=== PATIENT | male | born 1945 | race Caucasian/White ===

== ENCOUNTER 2019-05-17 15:38 | Outpatient (REF) | payer MEDICARE, BC, SELFPAY ==
[2019-05-17 21:03] LABS: ALT 18 U/L (16-63); Anion Gap 8.7 mmol/L (3-11); BUN 23 mg/dL (7-18); CO2 31.3 mmol/L (21.0-32.0); CREATININE 0.97 mg/dL (0.70-1.30); Calcium 9.8 mg/dL (8.5-10.1); Chloride 99 mmol/L (98-107); Glucose 177 mg/dL (70-100); LDL CHOLESTEROL 70 mg/dL (<100); Potassium 3.7 mmol/L (3.5-5.1); Sodium 139 mmol/L (136-145)
[2019-05-19 09:39] LABS: PSA, Screening 0.5 ng/ml (0-6.5)
== END 2019-05-17 15:58 ==
LOC: NCHCN 15:38
PROVIDERS: Visit Provider Internal Medicine
DX: I10 Essential (primary) hypertension (principal); E11.9 Type 2 diabetes mellitus without complications; Z12.5 Encounter for screening for malignant neoplasm of prostate
CPT/HCPCS: 80048; 83721; 84153; 84460

== ENCOUNTER 2020-11-25 11:39 | Outpatient (REF) | payer MEDICARE, BC, SELFPAY ==
[2020-11-25 15:52] LABS: HCT 44.3 % (40.0-50.0); MCH 30.8 pg (27.0-33.0); MCHC 33.9 % (32.0-36.0); MPV 10.7 fL (8.0-11.0); Platelet Count 217 10^3/uL (130-400); RBC 4.87 10^6/uL (4.36-5.78); RDW 13.2 % (11.8-14.1); RDW-SD 44.2 fL; WBC 6.85 10^3/uL (4.4-10.8)
[2020-11-25 16:28] LABS: ALT 37 U/L (16-63); AST 30 U/L (15-37); Albumin 3.8 g/dL (3.4-5.0); Alkaline Phosphatase 55 U/L (46-116); Anion Gap 7.7 mmol/L (3-11); BUN 23 mg/dL (7-18); Bilirubin, Total 0.7 mg/dL (0.2-1.0); CO2 31.3 mmol/L (21.0-32.0); CREATININE 1.1 mg/dL (0.70-1.30); Calcium 9.7 mg/dL (8.5-10.1); Chloride 99 mmol/L (98-107); Glucose 181 mg/dL (74-106); Potassium 3.9 mmol/L (3.5-5.1); Sodium 138 mmol/L (136-145); TSH 1.41 uIU/mL (0.36-3.74); Total Protein 7.3 g/dL (6.4-8.2)
[2020-11-25 16:40] LABS: LDL CHOLESTEROL 69 mg/dL (<100)
== END 2020-11-25 11:40 | disposition home or self-care (01) ==
LOC: NCHCN 11:39
PROVIDERS: PCP Internal Medicine; Visit Provider Internal Medicine
DX: I10 Essential (primary) hypertension (principal); E11.9 Type 2 diabetes mellitus without complications; I25.10 Atherosclerotic heart disease of native coronary artery without angina pectoris
CPT/HCPCS: 80053; 83721; 85027; 84443

== ENCOUNTER 2021-11-28 15:38 | Outpatient (REF) | payer MEDICARE, BC, SELFPAY ==
[2021-11-28 18:52] LABS: HCT 46.9 % (40.0-50.0); MCH 29.8 pg (27.0-33.0); MCV 93 fL (80-95); MPV 11.2 fL (8.0-11.0); Platelet Count 204 10^3/uL (130-400); RBC 5.03 10^6/uL (4.36-5.78); RDW 13.2 % (11.8-14.1); RDW-SD 45.1 fL; WBC 6.95 10^3/uL (4.4-10.8)
[2021-11-28 19:14] LABS: ALT 39 U/L (16-63); Anion Gap 9.1 mmol/L (3-11); CO2 30.9 mmol/L (21.0-32.0); CREATININE 1.1 mg/dL (0.70-1.30); Calcium 9.8 mg/dL (8.5-10.1); Calculated LDL 98 mg/dL (<100); Chloride 97 mmol/L (98-107); Cholesterol 172 mg/dL (<200); Glucose 221 mg/dL (74-106); HDL Cholesterol 47 mg/dL (40-60); Potassium 3.9 mmol/L (3.5-5.1); Sodium 137 mmol/L (136-145); Triglyceride 139 mg/dL (<150)
[2021-11-28 19:37] LABS: BUN 29 mg/dL (7-18)
== END 2021-11-28 15:39 | disposition home or self-care (01) ==
LOC: NCHCN 15:38
PROVIDERS: PCP Internal Medicine; Visit Provider Internal Medicine
DX: I10 Essential (primary) hypertension (principal); E11.9 Type 2 diabetes mellitus without complications; I25.10 Atherosclerotic heart disease of native coronary artery without angina pectoris
CPT/HCPCS: 80048; 80061; 85027; 84460

== ENCOUNTER 2022-05-04 12:10 | Outpatient (REF) | payer MEDICARE, BC, SELFPAY ==
[2022-05-05 18:22] LABS: PSA, Diagnostic 0.6 ng/mL (<=6.5)
== END 2022-05-04 12:11 | disposition home or self-care (01) ==
LOC: NCHCN 12:10
PROVIDERS: PCP Internal Medicine; Visit Provider Internal Medicine
DX: N40.1 Benign prostatic hyperplasia with lower urinary tract symptoms (principal)
CPT/HCPCS: 84153

== ENCOUNTER 2022-11-19 13:47 | Outpatient (REF) | payer MEDICARE, BC, SELFPAY ==
[2022-11-19 20:00] LABS: ALT 36 U/L (16-63); AST 25 U/L (15-37); Albumin 3.7 g/dL (3.4-5.0); Alkaline Phosphatase 54 U/L (46-116); Anion Gap 9.7 mmol/L (3-11); BUN 24 mg/dL (7-18); Bilirubin, Total 0.5 mg/dL (0.2-1.0); CO2 27.3 mmol/L (21.0-32.0); CREATININE 1.2 mg/dL (0.70-1.30); Calcium 9.6 mg/dL (8.5-10.1); Chloride 100 mmol/L (98-107); Creatine Kinase 106 U/L (39-308); Estimated GFR 62.29 (mL/min/1.73m2); Glucose 232 mg/dL (74-106); Potassium 3.9 mmol/L (3.5-5.1); Sodium 137 mmol/L (136-145); Total Protein 7.6 g/dL (6.4-8.2)
[2022-11-19 20:26] LABS: Calculated LDL 66 mg/dL (<100); Cholesterol 129 mg/dL (<200); HDL Cholesterol 43 mg/dL (40-60); Triglyceride 100 mg/dL (<150)
== END 2022-11-19 13:48 | disposition home or self-care (01) ==
LOC: NCHCN 13:47
PROVIDERS: PCP Internal Medicine; Visit Provider Internal Medicine
DX: I10 Essential (primary) hypertension (principal); E11.9 Type 2 diabetes mellitus without complications; R00.2 Palpitations; I25.10 Atherosclerotic heart disease of native coronary artery without angina pectoris; N40.1 Benign prostatic hyperplasia with lower urinary tract symptoms
CPT/HCPCS: 80053; 80061; 82550

== ENCOUNTER 2024-04-24 20:42 | Outpatient (REF) | payer MEDICARE, BC, SELFPAY ==
[2024-04-24 20:21] LABS: ALT 36 U/L (16-63); AST 27 U/L (15-37); Albumin 3.6 g/dL (3.4-5.0); Alkaline Phosphatase 61 U/L (46-116); Anion Gap 7.7 mmol/L (3-11); BUN 24 mg/dL (7-18); CO2 30.3 mmol/L (21.0-32.0); CREATININE 1.2 mg/dL (0.70-1.30); Calcium 9.7 mg/dL (8.5-10.1); Calculated LDL 73 mg/dL (<100); Chloride 100 mmol/L (98-107); Cholesterol 150 mg/dL (<200); Glucose 159 mg/dL (74-106); HDL Cholesterol 46 mg/dL (40-60); Potassium 3.7 mmol/L (3.5-5.1); Sodium 138 mmol/L (136-145); Total Protein 7.4 g/dL (6.4-8.2); Triglyceride 159 mg/dL (<150)
[2024-04-25 18:04] LABS: PSA, Screening 0.8 ng/mL (<=6.5)
== END 2024-04-24 20:43 | disposition home or self-care (01) ==
LOC: NCHCN 20:42
PROVIDERS: PCP Internal Medicine; Visit Provider Internal Medicine
DX: I10 Essential (primary) hypertension (principal)
CPT/HCPCS: 80053; 80061; 84153

== ENCOUNTER 2024-06-02 11:56 | Outpatient (REF) | payer MEDICARE, BC, SELFPAY ==
--- OUTSIDE RECORDS SUMMARY | 2024-06-02 12:01 | XMS_ITS | Encounter Summary ---
Author Organization [facility] Address [address] [place] [address] Care Team Providers Care Db2 Dba Name Role Phone Unavailable Primary Care Provider Unavailabl e Encounter Details Date Type Department Care Team (Late st Contact Info) Description 04/25/2024 Lab Requisition [facility] Pathology & Laboratory Medicine - [facility] [address] [place] [address] Outr Resulting Lab, Provider Social History Tobacco Use Types Packs/Day Years Used Date Smoking Tobacco: Never Assessed Sex and Gender Information Value Date Recorded Sex Assigned at Not on file Gender Identity Not on file Sexual Orientation Not on file documented as of this encounter Plan of Treatment Not on file documented as of this encounter Procedures Procedure Name Priority Date/Time Associated Diagnosis Comments PSA TOTAL, DIAGNOSTIC Routine 04/24/2024 11:40 EDT documented in this encounter Results * PSA TOTAL, DIAGNOSTIC (04/24/2024 11:40 EDT) PSA 0.8 <=6.5 ng/mL 04/25/2024 17:59 EDT [facility] Blood VENOUS BLOOD / Unknown 04/24/2024 11:40 EDT 04/25/2024 17:08 EDT Narrative [facility] - 04/25/2024 17:59 EDT NOTE: Serum PSA concentration should not be interpreted as absolute evidence for the presence or absence of malignant disease. Assayed on Siemens ADVIA Centaur XPT using chemiluminescent technology.??Values obtained by using different assay methods cannot be used interchangeably. Provider Outr Resulting Lab CHEMISTRY & BLOOD GAS ORDERABLES [facility] [address] [place] [address] documented in this encounter Visit Diagnoses Not on filedocumented in this encounter
--- OUTSIDE RECORDS SUMMARY | 2024-06-02 12:01 | XMS_ITS | Encounter Summary ---
Author Organization [facility] Address [facility] [address] Care Team Providers Care Nail Mill Worker Name Role Phone Maco Shaikh MD Primary Care Provider + [phone] Reason for Visit * Reason Comments Skin Check Encounter Details Date Type Department Care Team (Late st Contact Info) Description 05/23/2018 11:00 AM EDT Office Visit Dermatology at [address] [place] [address] Bulmaro Toth MD [address], [place] [address] Chondrodermatitis nodularis helicis of right ear; Seborrheic keratosis Social History Tobacco Use Types Packs/Day Years Used Date Smoking Tobacco: Former Smokeless Tobacco: Never Sex and Gender Information Value Date Recorded Sex Assigned at Not on file Gender Identity Not on file Sexual Orientation Not on file documented as of this encounter Progress Notes * Bulmaro Toth MD - 05/23/2018 11:00 AM EDT Problem: Skin checkup 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 Is concerned about a sore spot in the right upper lateral helical rim spot on his right cheek and would like to have a general skin checkup. He points out that for the last 18 years is gone in the winter to [place], they spent 2 hours every day at the pool. He does try to wear a hat and use sunscreen when he is out of doors. He denies any past history of skin cancer or melanoma. Physical examination reveals a pleasant 72-year-old gentleman who has a solar elastotic nodule of the right superior lateral helical rim. Underlying this there is an area of tenderness with palpationconsistent with chondrodermatitis nodularis helicis. He has a seborrheic keratosis on the right jawline. Otherwise careful examination of the thinning parietal scalp, of the face the neck the chest the back the hands the arms and forearms is benign he does not desire examination of his legs. 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 Discussed different strategies for treating this 2. Today LN 2 x 2 applied 3. If site is still symptomatic when he returns in October from [place], could consider steroid injection and potentially also excision of the overlying elastotic nodule. 4. Patient reassured about benign nature of this Benign skin examination 1. Patient sure about benign skin examination 2. No lesion of concern seen 3. Recommend return to clinic in 1 year for repeat skin checkup. CC: Maco Shaikh MD documented in this encounter Plan of Treatment Not on file documented as of this encounter Visit Diagnoses Diagnosis Chondrodermatitis nodularis helicis of right ear Seborrheic keratosis Other seborrheic keratosis documented in this encounter Care Teams Nail Mill Worker Relationship Specialty Start Date End Date Maco Shaikh MD [address] [place] [id number] PCP - General General Internal Medicine 05/23/18 documented as of this encounter
--- OUTSIDE RECORDS SUMMARY | 2024-06-02 12:01 | XMS_ITS | Clinical Summary ---
Author Organization [facility] Address [address] [place] [address] Care Team Providers Care Drill Operator Name Role Phone Unavailable Primary Care Provider Unavailabl e Encounters Date Type Department Care Team Description 04/25/2024 Lab Requisition [facility] Pathology & Laboratory Medicine - [facility] [address] [place] [address] Outr Resulting Lab, Provider from Last 3 Months Social History Tobacco Use Types Packs/Day Years Used Date Smoking Tobacco: Never Assessed Sex and Gender Information Value Date Recorded Sex Assigned at Not on file Gender Identity Not on file Sexual Orientation Not on file Plan of Treatment Health Maintenance Due Date Last Done Comments Hepatitis C Screen 1945 RSV Immunization ( o r 60+ Years) (1 - 1-dose 60+ series) 2005 Fall Risk Screening 2010 COVID-19 Vaccine ( season) 2024 Procedures Procedure Name Priority Date/Time Associated Diagnosis Comments PSA TOTAL, DIAGNOSTIC Routine 04/24/2024 11:40 EDT from Last 3 Months Results * PSA TOTAL, DIAGNOSTIC (04/24/2024 11:40 EDT) PSA 0.8 <=6.5 ng/mL 04/25/2024 17:59 EDT [facility] Blood VENOUS BLOOD / Unknown 04/24/2024 11:40 EDT 04/25/2024 17:08 EDT Narrative [facility] - 04/25/2024 17:59 EDT NOTE: Serum PSA concentration should not be interpreted as absolute evidence for the presence or absence of malignant disease. Assayed on Siemens ADVIA Intrallectaur XPT using chemiluminescent technology.??Values obtained by using different assay methods cannot be used interchangeably. Provider Outr Resulting Lab CHEMISTRY & BLOOD GAS ORDERABLES [facility] [address] [place] [address] from Last 3 Months
--- OUTSIDE RECORDS SUMMARY | 2024-06-02 12:01 | XMS_ITS | Referral Summary ---
Author Organization [facility] Address [address] [place] [address] Care Team Providers Care Lodge Officer Name Role Phone Unavailable Primary Care Provider Unavailabl e Encounters Date Type Department Care Team Description 04/25/2024 Lab Requisition [facility] Pathology & Laboratory Medicine - [facility] [address] [place] [address] Outr Resulting Lab, Provider from Last 3 Months Social History Tobacco Use Types Packs/Day Years Used Date Smoking Tobacco: Never Assessed Sex and Gender Information Value Date Recorded Sex Assigned at Not on file Gender Identity Not on file Sexual Orientation Not on file Plan of Treatment Not on file Procedures Procedure Name Priority Date/Time Associated Diagnosis Comments PSA TOTAL, DIAGNOSTIC Routine 04/24/2024 11:40 EDT from Last 3 Months Results * PSA TOTAL, DIAGNOSTIC (04/24/2024 11:40 EDT) PSA 0.8 <=6.5 ng/mL 04/25/2024 17:59 EDT [facility] Blood VENOUS BLOOD / Unknown 04/24/2024 11:40 EDT 04/25/2024 17:08 EDT Narrative [facility] - 04/25/2024 17:59 EDT NOTE: Serum PSA concentration should not be interpreted as absolute evidence for the presence or absence of malignant disease. Assayed on Siemens ADVIA Centaur XPT using chemiluminescent technology.??Values obtained by using different assay methods cannot be used interchangeably. Provider Outr Resulting Lab CHEMISTRY & BLOOD GAS ORDERABLES [facility] [address] [place] [address] from Last 3 Months
--- OUTSIDE RECORDS SUMMARY | 2024-06-02 12:01 | XMS_ITS | Encounter Summary ---
Author Organization [facility] Address [address] [place] [address] Care Team Providers Care Women Nurse Name Role Phone Unavailable Primary Care Provider Unavailabl e Encounter Details Date Type Department Care Team (Late st Contact Info) Description 05/04/2022 Lab Requisition [facility] Pathology & Laboratory Medicine - [facility] [address] [place] [address] Outr Resulting Lab, Provider Social History Tobacco [...] Associated Diagnosis Comments PSA TOTAL, DIAGNOSTIC Routine 05/04/2022 12:00 EDT documented in this encounter Results * PSA TOTAL, DIAGNOSTIC (05/04/2022 12:00 EDT) PSA 0.6 <=6.5 ng/mL 05/05/2022 18:17 EDT [facility] Blood VENOUS BLOOD / Unknown 05/04/2022 12:00 EDT 05/05/2022 17:02 EDT Narrative [facility] - 05/05/2022 18:17 EDT NOTE: Serum PSA concentration should not be interpreted as absolute evidence for the presence or absence of malignant disease. Assayed on Siemens ADVIA Centaur XPT using chemiluminescent technology.??Values obtained by using different assay methods cannot be used interchangeably. Provider Outr Resulting Lab CHEMISTRY & BLOOD GAS ORDERABLES [facility] [address] [place] [address] documented in this encounter Visit Diagnoses Not on filedocumented in this encounter
--- OUTSIDE RECORDS SUMMARY | 2024-06-02 12:01 | XMS_ITS | Clinical Summary ---
Author Organization [facility] Address [facility] [place] [address] Care Team Providers Care Environmental Protection Officer Name Role Phone Maco Shaikh MD Primary Care Provider + [phone] Allergies No known active allergies Medications Medication Sig Dispensed Refills Start Date End Date Status fluvoxamine (LUVOX) 50 mg tablet 50 MG, PO, Twice daily 04/24/2009 Active traZODone (DESYREL) 100 mg tablet 200 MG = 2 Tablet(s), PO, QHS 04/24/2009 Active metoprolol tartrate (LOPRESSOR) 50 mg tablet 12/03/2005 Active pioglitazone (ACTOS) 30 mg tablet 01/01/2005 Active metFORMIN (GLUCOPHAGE) 500 mg tablet 01/01/2005 Active ezetimibe-simvastatin (VYTORIN 10-80) 10-80 mg per tablet 01/01/2005 Active aspirin (ECOTRIN) 325 mg EC tablet 01/01/2005 Active VENTOLIN HFA 90 mcg/actuation HFA Aerosol Inhaler INHALE TWO PUFFS BY MOUTH FOUR TIMES A DAY NEEDED 0 03/01/2018 Active atorvastatin (LIPITOR) 80 mg Tablet TAKE ONE TABLET BY MOUTH EVERY DAY 3 01/26/2018 Active fluticasone (FLONASE) 50 mcg/actuation [place], Suspension SPRAY 2 SPRAYS IN EACH NOSTRIL ONCE DAILY 2 01/26/2018 Active hydroCHLOROthiazide (HYDRODIURIL) 50 mg Tablet TAKE ONE TABLET BY MOUTH EVERY DAY 3 01/24/2018 Active HUMULIN N Suspension INJECT 35 UNITS UNDER THE SKIN EVERY MORNING AND 30 UNITS IN THE EVENING 2 01/24/2018 Active latanoprost (XALATAN) 0.005 % Drops INSTILL ONE DROP IN EACH EYE EVERY DAY AT BEDTIME 98 02/03/2018 Active ndejnfjm-brvofmgtt-ejb amethasone (MAXITROL) 3.5mg/mL-10,000 unit/mL-0.1 % Drops, Suspension INSTILL ONE DROP IN EACH EYE EVERY 6 HOURS NEEDED 0 03/01/2018 Active ranitidine (ZANTAC) 150 mg Tablet TAKE ONE TABLET BY MOUTH TWICE A DAY 3 01/26/2018 Active enalapril (VASOTEC) 20 mg Tablet TAKE ONE TABLET BY MOUTH TWICE A DAY 3 01/24/2018 Active Active Problems Problem Noted Date Diagnosed Date Chondrodermatitis nodularis helicis of right ear 05/23/2018 Seborrheic keratosis 05/23/2018 Immunizations Name Administration Dates Next Due Influenza Vaccine, Whole 04/24/2009,06/04/2008 Social History Tobacco Use Types Packs/Day Years Used Date Smoking Tobacco: Former Smokeless Tobacco: Never Sex and Gender Information Value Date Recorded Sex Assigned at Not on file Gender Identity Not on file Sexual Orientation Not on file Plan of Treatment Not on file Care Teams Environmental Protection Officer Relationship Specialty Start Date End Date Maco Shaikh MD [address] [place] [address] PCP - General General Internal Medicine 05/23/18
[2024-06-02 19:45] LABS: HCT 40.5 % (40.0-50.0); HGB 13.7 g/dL (13.5-17.5); MCH 30.9 pg (27.0-33.0); MCHC 33.8 % (32.0-36.0); MCV 91 fL (80-95); MPV 11.3 fL (8.0-11.0); Platelet Count 222 10^3/uL (130-400); RBC 4.44 10^6/uL (4.36-5.78); RDW 13.2 % (11.8-14.1); WBC 6.99 10^3/uL (4.4-10.8)
[2024-06-02 19:46] LABS: ESR 28 mm/hr (0-20)
[2024-06-02 19:56] LABS: ALT 32 U/L (16-63); AST 37 U/L (15-37); Albumin 3.7 g/dL (3.4-5.0); Alkaline Phosphatase 59 U/L (46-116); Anion Gap 10.8 mmol/L (3-11); BUN 29 mg/dL (7-18); Bilirubin, Total 0.51 mg/dL (0.2-1.0); CO2 27.2 mmol/L (21.0-32.0); CREATININE 1.3 mg/dL (0.70-1.30); Calcium 10.1 mg/dL (8.5-10.1); Chloride 102 mmol/L (98-107); Creatine Kinase 112 U/L (39-308); Estimated GFR 56.23 (mL/min/1.73m2); Glucose 240 mg/dL (74-106); Magnesium 1.8 mg/dL (1.8-2.4); Potassium 3.9 mmol/L (3.5-5.1); Sodium 140 mmol/L (136-145); Total Protein 7.9 g/dL (6.4-8.2); Troponin I 22 ng/L (<or=76)
[2024-06-02 19:59] LABS: C-Reactive Protein < 0.50 mg/dL (<or=0.5)
== END 2024-06-02 11:57 | disposition home or self-care (01) ==
LOC: NCHCN 11:56
PROVIDERS: PCP Internal Medicine; Visit Provider Internal Medicine
DX: I20.9 Angina pectoris, unspecified (principal)
CPT/HCPCS: 80053; 82550; 85027; 85652; 83735; 84484; 86140

== ENCOUNTER 2024-11-01 14:31 | Outpatient (REF) | payer MEDICARE, BC, SELFPAY ==
[2024-11-01 20:44] LABS: HCT 37.1 % (40.0-50.0); HGB 12.2 g/dL (13.5-17.5); MCH 30.2 pg (27.0-33.0); MCHC 32.9 % (32.0-36.0); MCV 92 fL (80-95); MPV 10.5 fL (8.0-11.0); Platelet Count 246 10^3/uL (130-400); RBC 4.04 10^6/uL (4.36-5.78); RDW-SD 47.1 fL; WBC 8.01 10^3/uL (4.4-10.8)
[2024-11-01 20:45] LABS: Anion Gap 9.1 mmol/L (3-11); BUN 27 mg/dL (7-18); C-Reactive Protein 0.76 mg/dL (<or=0.5); CO2 26.9 mmol/L (21.0-32.0); CREATININE 1.4 mg/dL (0.70-1.30); Chloride 101 mmol/L (98-107); Estimated GFR 51.13 (mL/min/1.73m2); Glucose 191 mg/dL (74-106); NT-proBNP 589 pg/mL (<300); Potassium 4.2 mmol/L (3.5-5.1); Sodium 137 mmol/L (136-145)
[2024-11-01 20:49] LABS: ESR 39 mm/hr (0-20)
[2024-11-01 21:07] LABS: Calculated LDL 49 mg/dL (<100); Cholesterol 115 mg/dL (<200); HDL Cholesterol 49 mg/dL (>or=40); Triglyceride 85 mg/dL (<150)
== END 2024-11-01 14:32 | disposition home or self-care (01) ==
LOC: NCHCN 14:31
PROVIDERS: PCP Internal Medicine; Visit Provider Internal Medicine
DX: E78.5 Hyperlipidemia, unspecified (principal); I10 Essential (primary) hypertension; M10.9 Gout, unspecified
CPT/HCPCS: 80048; 80061; 85027; 85652; 83880; 84550; 86140; 86431